=== PATIENT | male | born 1965 | race Caucasian/White ===

== ENCOUNTER 2019-12-13 18:05 | Emergency (ER) | payer BC, SELFPAY ==
--- NOTE | ~2019-12-13 | XR_ITS ---
EXAMINATION: XR chest ET placement INDICATION: Endotracheal tube insertion TECHNIQUE: Portable AP chest at 1902 hours COMPARISON: 1833 hours FINDINGS: An endotracheal tube has been inserted which ends 4.2 cm above the dominick. The nasogastric tube is in the stomach. The lungs are free of acute opacities. The cardiomediastinal silhouette is no rmal. There is no pleural effusion or pneumothorax. IMPRESSION: 1. Endotracheal tube inserted in adequate position. Reviewed, dictated and finalized at location A.
--- NOTE | ~2019-12-13 | CT_ITS ---
EXAMINATION: CT brain wo con INDICATION: Strokelike symptoms COMPARISON: None TECHNIQUE: Standard unenhanced head CT. The dose-length product (DLP) was 681.00 mGy-cm. The mA was a djusted according to patient size. Iterative reconstruction technique was employed. FINDINGS: There is a 2.2 x 2.0 cm hemorrhage in the right basal ganglia with intraventricular extensi on into the right lateral ventricle and the third ventricle. There is mass effect with effacement of the body of the right lateral ventricle. No definite underlying mass or infarction is identified. The garcia-white matter differentiation is normal. The basal cisterns are patent. The orbits are normal. T he paranasal sinuses, mastoids and calvarium are normal. IMPRESSION: 1. Acute hemorrhage of the right basal ganglia with extension into the right lateral ventricle and th ird ventricle. Neurosurgical consultation is recommended.These findings and recommendations were disc ussed with Dr. Guillen in the Emergency Department at 1825 hours on 12/13/2019. Reviewed, dictated and finalized at location A. IMPRESSION: 1. Acute hemorrhage of the right basal ganglia with extension into the right la teral ventricle and third ventricle. Neurosurgical consultation is recommended. These findings and recommendations were discussed with Dr. Guillen in the Emerg ency Department at 1825 hours on 12/13/2019.
--- NOTE | ~2019-12-13 | XR_ITS ---
EXAMINATION: XR abdomen NG/feed tube insert INDICATION: Nasogastric tube insertion TECHNIQUE: Portable AP KUB-NG at 1903 hours COMPARISON: None available FINDINGS: The nasogastric tube is in the stomach. There are no dilated loops of bowel. The visualized lung bases are clear. IMPRESSION: 1. Nasogastric tube in the stomach. Reviewed, dictated and finalized at location A.
--- NOTE | ~2019-12-13 | XR_ITS ---
EXAMINATION: XR chest 1V portable INDICATION: Weakness, intracranial hemorrhage TECHNIQUE: Portable AP chest at 1833 hours COMPARISON: None available FINDINGS: The lungs are free of acute opacities. There is no pleural effusion or pneumothorax. The ca rdiomediastinal silhouette is normal. The visualized bones and soft tissues are unremarkable. IMPRESSION: 1. No acute cardiopulmonary abnormality. Reviewed, dictated and finalized at location A.
--- NOTE | 2019-12-13 18:07 | ECG_ITS ---
Measurements Intervals [place] Rate: 110 P: 52 ND: 185 QRS: -35 QRSD: 105 T: 31 QT: 401 QTc: 544 Interpretive Statements SINUS OR ECTOPIC ATRIAL TACHYCARDIA LEFT AXIS DEVIATION DELAYED PRECORDIAL R/S TRANSITION BASELINE ARTIFACT- I, II, III, AVR, AVL, AVF ABNORMAL ECG Electronically Signed On 12-14-2019 8:36:08 CDT by Thad Adler D.O.
--- NOTE | 2019-12-13 18:13 | ED.NEUROSD ---
HPI - Neuro Symptoms/Deficit General Chief Complaint: Suspected CVA Stated Complaint: stoke like symptoms Time Seen by Provider: 12/13/19 18:13 Source: patient Mode of arrival: ambulatory Limitations: no limitations History of Present Illness HPI Narrative: A 54 y/o male presents to the ED with c/o LUE and LLE weakness that began 20 minutes prior to his arrival. 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 Pt started to experience difficulty walking so his brought him to the ED for evaluation. Pt states that he is in otherwise good health besides his PMHx of uncontrolled HTN. Pt does not see his PCP on a regular basis. He denies a fall or HI, smoking, and drug use. Pt is on ASA. Onset (ago): minute(s) (20) Timing confirmed by: spouse Location: left arm and left leg On Anticoagulants: Yes (ASA) Related Data Home Medications Medication Instructions Recorded Confirmed aspirin 162 mg PO BID 12/13/19 Allergies Allergy/AdvReac Type Severity Reaction Status Date / Time codeine Allergy Rash Verified 12/13/19 18:23 Review of Systems Review of Systems: All systems reviewed & are unremarkable except as noted in HPI and below Constitutional: Comments: Denies: a fall Neurologic: Reports weakness (LLE, LUE) Comments: Denies: a HI [facility] Past Medical History Medical History (Updated 12/13/19 @ 19:40 by Efrain Guillen MD) HTN (hypertension) Social History Social History (Updated 12/13/19 @ 18:20 by Tania Mantilla) Smoking status: Never smoker Substance use: never Comments PCP: Dr. Davis Exam Const: General: healthy appearing, no acute distress, well developed and alert Orientation/consciousness: patient oriented x3 Limitations: no limitations HENMT: Head: normocephalic and atraumatic Ears: external ears normal General nose exam: Normal external nose present and No nasal discharge present Mouth: Yes oropharynx normal and Yes moist mucous membranes Resp: Effort & Inspection: normal respiratory effort and able to speak in complete sentences Auscultation: clear to auscultation bilaterally Cardio: Rate: tachycardic Rhythm: regular rhythm Peripheral pulses: radial pulses present and popliteal pulses present GI: Inspection: non-distended GI Palp: Yes Soft to palpation, No Tenderness to palpation present (GI) and No Guarding due to palpation present (GI) Skin: General skin exam: normal color and no rashes or lesions noted Rashes: no rashes Trauma: no lacerations or abrasions Neuro: General: patient oriented x3 Cranial nerves: Yes CN's II-XII intact bilaterally Speech: normal speech Motor exam (neuro): Other motor observations present (Flacid LUE with ability to move fingers, LLE can be raised off the bed.) Coordination: other (Cannot preform finger to nose LUE, cannot preform heel to dos santos LLE) Extrem: General: normal to inspection and no clubbing, cyanosis or edema Course Reevaluation(s) Reevaluation #1: Accepted for transfer to [facility] bu Dr. Tidwell in the ER and stroke team. Pt stable and oriented x 3. Cardene gtt with goal pressure of 160-180 mmHg per stroke team. Date: 12/13/19 Time: 18:32 Reevaluation #2: Patient vomiting and developing facial droop and slurred speech. Will intubated for airway protection. Will send patient by helicopter. Date: 12/13/19 Time: 18:45 Reevaluation #3: Patient intubated. Not tolerating propofol for sedation despite increasing gtt and giving boluses. AirEvac at bedside. Will give ketamine for sedation. Will attempt to transfused KCL IV enroute. Date: 12/13/19 Time: 19:35 Vital Signs Vital signs: Vital Signs Pulse Rate 117 H 12/13/19 18:16 Respiratory Rate 16 12/13/19 18:16 Blood Pressure 247/147 H 12/13/19 18:16 Pulse Oximetry 99 12/13/19 18:16 Pulse Rate 101 H 12/13/19 19:16 Respiratory Rate 15 12/13/19 19:16 Blood Pressure 171/117 H 12/13/19 19:16 Pulse Oximetry 99 12/13/19 19:16 Procedures
[2019-12-13 18:16] VITALS: BP 247/147; PULSE 117; RESP 16; O2SAT 99
[2019-12-13 18:21] LABS: Glucose Point of Care 332 (65-105)
[2019-12-13 18:25] LABS: Basophils Absolute Auto 0.1 K/mm3 (0.0-0.1); Basophils Percent Auto 0.7 % (0.2-1.2); Eosinophils Absolute Auto 0.4 K/mm3 (0-0.3); Eosinophils Percent Auto 2.6 % (0-4.4); Hematocrit 48.4 % (42.0-52.0); Hemoglobin 17.4 g/dL (14.0-18.0); Immature Granulocyte Absolute 0.08 K/mm3 (0.00-0.031); Immature Granulocyte Percent A 0.5 % (0-0.5); Lymphocytes Absolute Auto 4.97 K/mm3 (0.9-3.2); Lymphocytes Percent Auto 32.9 % (18.3-44.2); Mean Corpuscular Hemoglobin 29.9 pg (26-34); Mean Corpuscular Volume 83.2 fl (80-100); Mean Platelet Volume 9.7 fl (7.4-10.4); Monocytes Absolute Auto 0.9 K/mm3 (0.1-0.6); Neutrophils Absolute Auto 8.7 K/mm3 (1.3-6.7); Neutrophils Percent Auto 57.3 % (45.5-73.1); Platelet Count Result 347 k/mm3 (150-375); Red Blood Count 5.82 M/mm3 (4.6-6.20); Red Cell Distribution Width 13.1 % (11.5-14.5); White Blood Count 15.1 K/mm3 (4.5-10.0)
[2019-12-13] MEDS: ONDANSETRON INJ 4 MG/2 ML VIAL (18:33)
[2019-12-13 18:35] LABS: INR 0.9; Prothrombin Time 11.7 Seconds (11.1-14.7)
[2019-12-13] MEDS: niCARdipine 20 MG/200 ML 20 MG/200 ML BAG 50 MG IV CONT (18:35)
[2019-12-13 18:36] LABS: Partial Thromboplastin Time 34.1 SECONDS (22.3-36.8)
[2019-12-13 18:44] LABS: Blood Urea Nitrogen 12 mg/dL (9-20); Calcium 9.3 mg/dL (8.4-10.2); Carbon Dioxide 36 mmol/L (22-30); Chloride 91 mmol/L (98-107); Estimated CRCL calculation 52 ml/min; Estimated Glomerular Filt Rate 53; Glucose 341 mg/dL (75-110); Sodium 134 mmol/L (137-145)
--- NOTE | 2019-12-13 18:51 | PC.NURSE ---
DECISION MADE BY DR MOLINA TO INTUBATE THE PT PT VOMITING, LEFT SIDED FACIAL DROOP IS PREVALANT. MEDS USED FOR INTUBATION ATOMIDATE 30, SUCCHS 100 GIVEN IVP 1852 RESP IN ROOM FOR PROCEDURE PT INTUBATED BY DR MOLINA TIME 1853 BILATERAL BS NOTED 23 @ THE TEETH PROPOFAL STARTED AT 5MCG/KG=2.4 MLS/HR
--- NOTE | 2019-12-13 19:05 | PC.NURSE ---
VRBO TO GIVE PROPOFAL [address] MOLINA. INCREASED PROPOFAL TO 10 MCG RATE NICARDIPINE IS AT 10 MG RATE OF 100ML/HR ET TUBE 7.5, 23 AT THE LIP JOE PLACED PRIOR TO DEPARTURE NG PLACED PRIOR TO DEPT VRBO TO INCREASE PROPOFAL TO 20MCG VRBO TO GIVE ANOTHER X1 DOSE OF PROPAFOL 40IVP THIRD IV NOW PLACED IN RIGHT HAND 18G
[2019-12-13 19:12] VITALS: BP 179/106; PULSE 91; RESP 16
--- NOTE | 2019-12-13 19:13 | PC.NURSE ---
PROPOFAL STOPPING NOW PER DR MOLINA AIR EVAC TO START GIVING KETAMINE IVP BOLUS
[2019-12-13 19:16] VITALS: BP 171/117; PULSE 101; RESP 15; O2SAT 99
== END 2019-12-13 19:16 | disposition short-term general hospital (02) ==
PROVIDERS: General Practice; Emergency Provider Emergency Medicine; PCP Internal Medicine
DX: I61.8 Other nontraumatic intracerebral hemorrhage (principal); R47.81 Slurred speech; R29.810 Facial weakness; R40.2430 Glasgow coma scale score 3-8, unspecified time; E87.6 Hypokalemia; I10 Essential (primary) hypertension
CPT/HCPCS: 31500; 36415; 70450; 71045; 80048; 82948; 84484; 85025; 85610; 85730; 93005; 96374; 96375; 99291; J0330; J2405; J2704; J7030

== ENCOUNTER 2020-03-05 11:16 | Outpatient (CLI) | payer BC, SELFPAY ==
[2020-03-05 12:25] LABS: Alanine Aminotransferase 7 U/L (4-50); Aspartate Amino Transferase 17 U/L (17-59)
== END 2020-03-05 11:17 | disposition home or self-care (01) ==
PROVIDERS: PCP Internal Medicine; Visit Provider Podiatrist Foot & Ankle Surgery
DX: B35.1 Tinea unguium (principal)
CPT/HCPCS: 36415; 84450; 84460

== ENCOUNTER 2020-03-26 12:41 | Observation (INO) | payer BC, MEDICAID, SELFPAY ==
[2020-03-26] VITALS (13 sets, daily range): BP systolic 92–127; BP diastolic 62–85; PULSE 55–67; RESP 11–21; TEMP 36.4–36.6; O2SAT 94–99; BMI 21.1
--- NOTE | 2020-03-26 13:05 | PC.NURSE ---
1300-SPOKE WITH [facility] AT [place] [facility]. STATED MED PEAKS AT ~1 1/2-2 HOURS ,DOES NOT ANTICIPATE ANOTHER DROP IN BP. SYMPTOMATIC TREATMENT .WILL FAX INFO SHEETS.
[2020-03-26 13:25] LABS: Basophils Absolute Auto 0.1 K/mm3 (0.0-0.1); Eosinophils Absolute Auto 0.4 K/mm3 (0-0.3); Eosinophils Percent Auto 3.9 % (0-4.4); Hematocrit 38.3 % (42.0-52.0); Hemoglobin 12.6 g/dL (14.0-18.0); Immature Granulocyte Absolute 0.05 K/mm3 (0.00-0.031); Immature Granulocyte Percent A 0.5 % (0-0.5); Lymphocytes Absolute Auto 2.08 K/mm3 (0.9-3.2); Lymphocytes Percent Auto 19.2 % (18.3-44.2); Mean Corpuscular HGB Conc 32.9 g/dl (32-36); Mean Corpuscular Hemoglobin 28.3 pg (26-34); Mean Corpuscular Volume 86.1 fl (80-100); Mean Platelet Volume 9.5 fl (7.4-10.4); Monocytes Absolute Auto 0.8 K/mm3 (0.1-0.6); Monocytes Percent Auto 7.3 % (2.6-8.5); Neutrophils Absolute Auto 7.4 K/mm3 (1.3-6.7); Neutrophils Percent Auto 68.1 % (45.5-73.1); Platelet Count Result 365 k/mm3 (150-375); Red Blood Count 4.45 M/mm3 (4.6-6.20); Red Cell Distribution Width 13.2 % (11.5-14.5); White Blood Count 10.9 K/mm3 (4.5-10.0)
[2020-03-26 13:37] LABS: INR 1.1
[2020-03-26 13:38] LABS: Partial Thromboplastin Time 36.8 SECONDS (22.3-36.8)
[2020-03-26 13:39] LABS: Alanine Aminotransferase 8 U/L (4-50); Albumin Level 3.8 g/dL (3.5-5.1); Alkaline Phosphatase 86 U/L (38-126); Aspartate Amino Transferase 17 U/L (17-59); Bilirubin,Total 0.3 mg/dL (0.2-1.3); Blood Urea Nitrogen 13 mg/dL (9-20); Calcium 9.1 mg/dL (8.4-10.2); Carbon Dioxide 29 mmol/L (22-30); Chloride 102 mmol/L (98-107); Estimated CRCL calculation 41 ml/min; Estimated Glomerular Filt Rate 42; Glucose 94 mg/dL (75-110); Magnesium 2.1 mg/dL (1.6-2.3); Potassium 2.3 mmol/L (3.4-5.0); Sodium 139 mmol/L (137-145)
[2020-03-26 13:47] LABS: Acetaminophen < 10 ug/mL (10-30); Ethanol < 10 mg/dL (<10); Salicylate < 1.0 mg/dL (2-20)
[2020-03-26] MEDS: POTASSIUM CHLORIDE 20 MEQ TABLET 40 MEQ PO (14:22)
--- NOTE | 2020-03-26 14:38 | ED.GENADULT ---
HPI - General Adult General Chief complaint: Unspecified Stated complaint: TOOK DOUBLE DOSE OF BP MEDS Time Seen by Provider: 03/26/20 12:46 History of Present Illness HPI narrative: Patient is a 55-year-old male who presents the ER with accidental drug ingestion. He is supposed take Coreg 25 mg and he accidentally ingested 50 mg after his gave him a double dose of his meds. This occurred at 1030. No chest pain/shortness of breath/nausea/vomiting/dizziness. Patient has chronic left-sided deficits from a hemorrhagic stroke he suffered 3 months ago. Related Data Home Medications Medication Instructions Recorded Confirmed menthol 0.44 %-zinc oxide 20.6 % 1 applic TOPICAL BID PRN gm 02/27/20 02/27/20 topical ointment Allergies Allergy/AdvReac Type Severity Reaction Status Date / Time codeine Allergy Rash Verified 03/08/20 09:19 Review of Systems Review of Systems: All systems reviewed & are unremarkable except as noted in HPI and below Constitutional: Constitutional: Denies chills, Denies fever(s) and Denies weakness Cardiovascular: Cardiovascular: Denies chest pain, Denies rapid heart rate and Denies slow heart rate Neurologic: Denies confusion, Denies dizziness and Denies syncope PMFSH Past Medical History Medical History (Updated 03/26/20 @ 14:41 by Efrain Guillen MD) Bowel incontinence Family history of colon cancer in mother Hemiparesis affecting left side as late effect of cerebrovascular accident Hernia HTN (hypertension) Intracranial hemorrhage Stroke Type 2 diabetes mellitus without complications Surgical History Surgical History (Updated 02/27/20 @ 14:06 by Shu Cortes) H/O kidney donation Family History Family History (Updated 02/27/20 @ 14:12 by Shu Cortes) Father Alcoholism Mother Carcinoma of colon Social History Social History (Updated 02/27/20 @ 14:06 by Shu Cortes) Smoking status: Never smoker Alcohol intake: never Substance use: never Exam Narrative: Exam Narrative: GENERAL: Well-appearing, well-nourished, and in no acute distress. HEAD: Normocephalic, atraumatic. EYES: PERRL and EOMI. ENT: Mucous membranes moist. CHEST: Clear to auscultation. No respiratory distress. HEART: Regular rate and rhythm. Normal peripheral pulses. ABDOMEN: Soft, nontender, nondistended. EXTREMITIES: Left-sided weakness with contractures of left upper extremity and rigidity in left lower extremity. Normal strength and range of motion on the right side. SKIN: Warm, dry, no rash. NEURO: Alert and oriented x3. Course Course Emergency Course: This was not a toxic ingestion, poison control contacted and states patient is beyond the peak of the medication. Patient will be admitted for observation given critically low potassium. He will get oral and IV replacement. Vital Signs Vital signs: Vital Signs Pulse Rate 56 L 03/26/20 13:09 Respiratory Rate 16 03/26/20 13:09 Blood Pressure 119/85 03/26/20 13:09 Pulse Oximetry 99 03/26/20 13:09 Pulse Rate 56 L 03/26/20 13:13 Respiratory Rate 16 03/26/20 13:09 Blood Pressure 119/85 03/26/20 13:09 Pulse Oximetry 99 03/26/20 13:09 Medical Decision Making Vital Signs Vital Signs: Vital Signs Pulse Rate 56 L 03/26/20 13:09 Respiratory Rate 16 03/26/20 13:09 Blood Pressure 119/85 03/26/20 13:09 Pulse Oximetry 99 03/26/20 13:09 Pulse Rate 56 L 03/26/20 13:13 Respiratory Rate 16 03/26/20 13:09 Blood Pressure 119/85 03/26/20 13:09 Pulse Oximetry 99 03/26/20 13:09 Lab Data Result diagrams: 03/26/20 13:19 03/26/20 13:19 Labs: Lab Results 03/26/20 03/26/20 03/26/20 Range/Units 13:19 13:19 13:19 WBC 10.9 H (4.5-10.0) K/mm3 RBC 4.45 L (4.6-6.20) M/mm3 Hgb 12.6 L D (14.0-18.0) g/dL Hct 38.3 L (42.0-52.0) % MCV 86.1 (80-100) fl MCH 28.3 (26-34) pg MCHC 32.9 (32-36) g/dl RDW 13.2
[2020-03-26 14:57] LABS: Add Urine Microscopic? YES; Appearance Urine Clear (Clear); Bacteria Urine Trace /hpf; Bilirubin Urine Negative (Negative); Color Urine Yellow (Yellow); Glucose Urine UA Negative (Negative); Ketones Urine Negative (Negative); Leukocyte Esterase Ur 3+ LEU/UL (Negative); Mucus Urine Rare /lpf; Nitrate Urine Negative (Negative); Protein Urine 2+ mg/dL (Negative); Specific Grav Ur 1.012 (1.001-1.035); Squamous Epithelial Cell Urine Rare /hpf (Few); Urobilinogen Urine Negative mg/dL (<2.0); WBC Urine 51-75 /hpf
[2020-03-26 14:58] LABS: Blood Urine Negative (Negative)
--- NOTE | 2020-03-26 15:03 | PC.NURSE ---
PC called for patient update in patient care.
[2020-03-26 15:18] LABS: Amphetamine Screen Urine Negative (Negative); Barbiturate Screen Urine Negative (Negative); Benzodiazepines Screen Urine Negative (Negative); Cannabinoid Screen Urine Negative (Negative); Cocaine Screen Urine Negative (Negative); Methadone Screen Urine Negative (Negative); Opiate Screen Urine Negative (Negative); Phencyclidine Screen Urine Negative (Negative)
--- NOTE | 2020-03-26 16:30 | PM.IMHP ---
H&P: HPI History of Present Illness Chief complaint: Accidental overdose of beta andre. Narrative: Ted iRchardson is a 55-year-old male with history of intracranial hemorrhage in November 2019, hypertension, chronic kidney disease, benign prostatic hyperplasia, and type 2 diabetes mellitus who presented to the emergency department earlier today via EMS from home for evaluation of an accidental overdose of his beta-andre. He is due for carvedilol 25 milligrams today, but his accidentally a 50 milligrams. [place] [facility] was contacted and they a report peak affecting the drug in 1.5 to 2 hours and close monitoring. His blood pressure has been relatively stable in the low 100s systolic. Additionally, his potassium was noted to be quite low, and he has never had problems with that before. He is not on a diuretic and he has not required any excess insulin recently. At the time my evaluation he has no complaints and reports feeling well. He denies headache, lightheadedness/dizziness, blurry vision, palpitations, shortness of breath, nausea, vomiting, and diarrhea. Review of Systems Review of Systems: Narrative: Twelve systems were reviewed with pertinent positives and negatives as per HPI. No fever, chills, or sweats. No recent cold or flu symptoms. He denies cough and shortness of breath. Appetite has been good. He has a chronic indwelling Storm catheter since his hemorrhagic stroke in November 2019. He has not had lower abdominal pain or back pain. He has dense hemiplegia from the stroke. He recently passed a swallow study and had his G-tube pulled. He has not had dysphagia or concerns for aspiration. He has indwelling Storm due to urinary retention. He has minimal control of his bowels since his stroke. He has poor core strength and balance, and when he sits up he tends to lean to the left. Except as documented, all other systems were reviewed and are negative. [facility] Past Medical History Medical History (Updated 03/26/20 @ 20:57 by Malou Barnard PA-C) Benign prostatic hyperplasia Chronic kidney disease Gastroesophageal reflux disease Hyperlipidemia Hypertension 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 Urinary retention With indwelling Storm catheter. Surgical History Surgical History (Updated 03/26/20 @ 20:50 by Malou Barnard PA-C) History of kidney donation History of tracheostomy Family History Family History Father Alcoholism Mother Carcinoma of colon Social History Social History (Updated 03/26/20 @ 20:51 by Malou Barnard PA-C) Social History: Surrogate decision maker: Coreen Richardson, . Code status: Full code. Smoking status: Never smoker Alcohol intake: never Substance use: never Additional living arrangements comments: Patient lives with his in [place]. 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 Gender identity (if verbalized by the patient): Male Spiritual care concerns: No Meds Home Medications and Allergies Home Medications Medication Instructions Recorded Confirmed Type amlodipine 10 mg tablet 10 mg PO DAILY #30 tablet 02/28/20 03/26/20 Rx finasteride 5 mg tablet 5 mg PO DAILY #30 tablet 02/28/20 03/26/20 Rx gabapentin 100 mg capsule 100 mg PO BID #60 cap 02/28/20 03/26/20 Rx carvedilol 12.5 mg tablet 25 mg PO Q12H #120 tablet 03/04/20 03/26/20 Rx atorvastatin 20 mg PO HS 03/26/20 03/26/20 History docusate sodium 50 mg PO DAILY 03/26/20 03/26/20 History famotidine 20 mg PO BID 03/26/20 03/26/20 History fluoxetine 20 mg PO HS 03/26/20 03/26/20 History hydralazine 100 mg PO Q8H 03/26/20 03/26/20 History insulin glargine [Lantus U-100 15 unit SUB-Q HS MDD 15 03/26/20 03/26/20 History Insulin] insulin lispro See Rx Instructions .ROUTE .COMPLEX 03/26/20 0
--- NOTE | 2020-03-26 16:37 | ADMGEN ---
This patient, Ted Richardson, was admitted to Medical Room 240-01. Patient/family oriented to hospital policies and general routines including ID bracelet, bed and alarms, visiting hours, pain management, procedures, bathroom and other care routines, personal items, smoking policy, room service/diet, and visiting hours. Valuables list has been completed. Information on how to activate the Rapid Response Team has been discussed. Patient/Family are encouraged to report perceived risks to care and to ask questions if they do not understand what they are told or what they should do.
[2020-03-26] MEDS: ACETAMINOPHEN 325 MG TABLET 650 MG PO (17:21)
[2020-03-26 17:40] LABS: Glucose Point of Care 100 (65-105)
[2020-03-26 21:07] LABS: Potassium 2.8 mmol/L (3.4-5.0)
[2020-03-26] MEDS: GABAPENTIN 100 MG CAPSULE PO (22:07)
[2020-03-26] MEDS: FLUoxetine HCL 20 MG CAPSULE PO (22:07)
[2020-03-26] MEDS: POTASSIUM CHLORIDE 20 MEQ PACKET (FOR LIQUID) 40 MEQ PO (22:07)
[2020-03-26] MEDS: SEVELAMER CARBONATE 800 MG TABLET PO (22:07)
[2020-03-26] MEDS: TAMSULOSIN HCL 0.4 MG CAPSULE PO (22:08)
[2020-03-26] MEDS: ATORVASTATIN 20 MG TABLET PO (22:08)
[2020-03-26] MEDS: FAMOTIDINE 20 MG TABLET PO (22:08)
[2020-03-26] MEDS: INSULIN GLARGINE (*BKC) 100 UNITS/ML 15 UNITS SUB-Q (22:11)
[2020-03-26 23:08] LABS: Glucose Point of Care 169 (65-105)
[2020-03-27] VITALS: PULSE 68
[2020-03-27 04:00] VITALS: PULSE 60
[2020-03-27 05:34] LABS: Hematocrit 34.1 % (42.0-52.0); Hemoglobin 11.4 g/dL (14.0-18.0); Mean Corpuscular HGB Conc 33.4 g/dl (32-36); Mean Corpuscular Hemoglobin 28.6 pg (26-34); Mean Corpuscular Volume 85.5 fl (80-100); Mean Platelet Volume 9.2 fl (7.4-10.4); Platelet Count Result 333 k/mm3 (150-375); Red Blood Count 3.99 M/mm3 (4.6-6.20); Red Cell Distribution Width 13.1 % (11.5-14.5); White Blood Count 8.1 K/mm3 (4.5-10.0)
[2020-03-27 05:51] LABS: Blood Urea Nitrogen 13 mg/dL (9-20); Calcium 8.8 mg/dL (8.4-10.2); Carbon Dioxide 26 mmol/L (22-30); Chloride 108 mmol/L (98-107); Estimated CRCL calculation 44 ml/min; Estimated Glomerular Filt Rate 48; Glucose 76 mg/dL (75-110); Potassium 2.6 mmol/L (3.4-5.0); Sodium 140 mmol/L (137-145)
[2020-03-27 05:57] VITALS: BP 123/74; PULSE 62; RESP 18; TEMP 36.4; O2SAT 99
[2020-03-27 07:56] LABS: Glucose Point of Care 103 (65-105)
[2020-03-27 08:00] VITALS: PULSE 71
[2020-03-27] MEDS: DOCUSATE SODIUM LIQ 100 MG/10 ML UDC 50 MG PO (08:30)
[2020-03-27] MEDS: SEVELAMER CARBONATE 800 MG TABLET PO ×2 (08:30→11:26)
[2020-03-27] MEDS: GABAPENTIN 100 MG CAPSULE PO (08:31)
[2020-03-27] MEDS: FINASTERIDE 5 MG TABLET PO (08:31)
[2020-03-27] MEDS: FAMOTIDINE 20 MG TABLET PO (08:31)
[2020-03-27 10:06] VITALS: BP 131/80; PULSE 61; RESP 14; TEMP 36.5; O2SAT 97
[2020-03-27 10:55] VITALS: BMI 22.6
[2020-03-27 11:44] LABS: Glucose Point of Care 102 (65-105)
[2020-03-27 12:00] VITALS: PULSE 60
--- NOTE | 2020-03-27 12:45 | PM.DS ---
DS: Admitting Diagnosis Admitting Diagnosis Admitting Diagnosis: Poisoning by unspecified drugs, medicaments and biological substances, accidental (unintentional), initial encounter DS: Discharge Diagnosis Discharge Diagnosis (1) Accidental overdose: Code(s): T50.901A - Poisoning by unspecified drugs, medicaments and biological substances, accidental (unintentional), initial encounter Status: Acute Assessment and Plan: Patient was given Coreg 50 milligrams this morning instead of his usual dose of 25 milligrams. Per Poison Control, peak effect at 1.5 to 2 hours. Pt feels better after iv fluid hydration (2) Hypokalemia: Code(s): E87.6 - Hypokalemia Status: Acute Assessment and Plan: Unclear why his potassium is so low. ? refeeding syndrome Pt just had peg tube removed Pt added dietary supplements and additional potassium supplements (3) Chronic kidney disease: Code(s): N18.9 - Chronic kidney disease, unspecified Status: Acute Assessment and Plan: reports chronic kidney disease stage 3. Continue sevelamer. Pt to follow with PCP (4) Hypertension: Code(s): I10 - Essential (primary) hypertension Status: Acute Assessment and Plan: Restart antihypertensives History of old stroke and intracranial hemorrhage in November 2019 (5) Benign prostatic hyperplasia: Code(s): N40.0 - Benign prostatic hyperplasia without lower urinary tract symptoms Status: Acute Assessment and Plan: Indwelling Storm catheter due to urinary retention. Continue tamsulosin and finasteride. DS: Summary Time Spent with Patient Time attestation: Total time spent providing and/or coordinating discharge services:40 minutes on day of dischrage Exam Narrative: Exam Narrative: General: Chronically ill and frail Neck: Supple. Healed tracheostomy site. Respiratory: Lungs are clear to auscultation bilaterally. Cardiovascular: Regular rate and rhythm with S1-S2. Gastrointestinal: Abdomen is soft, nontender, and nondistended with positive bowel sounds. Genitourinary: Storm catheter in place. Skin: Warm and dry. No rash or lesions on limited exam. Extremities: No cyanosis, clubbing, or edema. Radial and pedal pulses intact. Neurological: Left-sided hemiplegia. Psychiatric: Pleasant and cooperative with normal mood and flat affect. DS: Data Data Completed and Pending Labs on day of discharge: Labs from last 24 hours 03/27/20 03/27/20 03/27/20 11:44 11:21 07:52 WBC RBC Hgb Hct MCV MCH MCHC RDW Plt Count MPV Immature Gran % (Auto) Neut % (Auto) Lymph % (Auto) Pope % (Auto) Eos % (Auto) Baso % (Auto) Lymph # (Auto) Pope # (Auto) Eos # (Auto) Baso # (Auto) Abs Immat Gran (auto) Absolute Neuts (auto) Absolute Nucleated RBC Nucleated RBC % PT INR APTT Sodium Potassium 3.0 L Chloride Carbon Dioxide BUN Creatinine Estim Creat Clear Calc Estimated GFR Glucose POC Capillary Glucose 102 103 Calcium Magnesium Total Bilirubin AST ALT Alkaline Phosphatase Total Protein Albumin Urine Color Urine Appearance Urine pH Ur Specific [place] Urine Protein Urine Glucose (UA) Urine Ketones Ur Blood (Man) Urine Nitrate Urine Bilirubin Urine Urobilinogen Leukocyte Esterase Rfl Urine RBC Urine WBC Ur Squamous Epith Cells Urine Bacteria Urine Mucus Salicylates Urine Opiates Screen Urine Methadone Screen Acetaminophen Ur Barbiturates Screen Ur Phencycli
== END 2020-03-27 15:45 | disposition home health service (06) ==
LOC: ANHED 14:41 → ANH2MED 20:39
PROVIDERS: Physician Assistant; Admitting Provider Internal Medicine; Emergency Provider Emergency Medicine; PCP Internal Medicine; Visit Provider Family Medicine
DX: T44.7X1A Poisoning by beta-adrenoreceptor antagonists, accidental (unintentional), initial encounter (principal); E87.6 Hypokalemia; I12.9 Hypertensive chronic kidney disease with stage 1 through stage 4 chronic kidney disease, or unspecified chronic kidney disease; N18.9 Chronic kidney disease, unspecified; E11.22 Type 2 diabetes mellitus with diabetic chronic kidney disease; N40.0 Benign prostatic hyperplasia without lower urinary tract symptoms; I69.354 Hemiplegia and hemiparesis following cerebral infarction affecting left non-dominant side; Z90.5 Acquired absence of kidney; Z79.4 Long term (current) use of insulin; Z79.899 Other long term (current) drug therapy
CPT/HCPCS: 36415; 80048; 80053; 80307; 81001; 83735; 84132; 85025; 85027; 85610; 85730; 87077; 87086; 87088; 87186; 96365; 96366; 99285; A9270; G0378; J1815; J3480

== ENCOUNTER 2020-04-02 08:00 | Outpatient (NON) | payer BC, MEDICAID, SELFPAY ==
[2020-04-02 19:11] LABS: Add Urine Microscopic? YES; Appearance Urine Turbid (Clear); Bacteria Urine 2+ /hpf; Bilirubin Urine Negative (Negative); Blood Urine 1+ (Negative); Color Urine Yellow (Yellow); Glucose Urine UA Negative (Negative); Ketones Urine Negative (Negative); Leukocyte Esterase Ur 3+ LEU/UL (Negative); Nitrate Urine Negative (Negative); Protein Urine 2+ mg/dL (Negative); RBC Urine 21-50 /hpf (0-2); Specific Grav Ur 1.012 (1.001-1.035); Urobilinogen Urine Negative mg/dL (<2.0); WBC Urine >75 /hpf
== END 2020-04-02 08:01 ==
PROVIDERS: PCP Internal Medicine; Visit Provider Clinical Nurse Specialist
DX: R30.0 Dysuria (principal)
CPT/HCPCS: 81001; 87077; 87086; 87088; 87186

== ENCOUNTER 2020-05-15 13:35 | Outpatient (CLI) | payer MEDICAID, SELFPAY ==
--- NOTE | ~2020-05-15 | CT_ITS ---
EXAMINATION: CT brain wo con EXAM DATE: 05/15/2020 14:10 INDICATION: Cerebral infarction. TECHNIQUE: Spiral CT of the head was performed without contrast. Axial, coronal and sagittal images were reviewed. The dose-length product (DLP) for this examination was 681.00 mGy-cm. The exposure w as tailored according to patient size, and iterative reconstruction (ASIR) was used as additional dos e reduction technique. Comparison is made to prior examination from 12/13/2019. FINDINGS: Small old right periventricular infarction (residual encephalomalacia from the previously s een hemorrhage in this location). There is no acute intraparenchymal hemorrhage. No evidence of intr aparenchymal brain mass lesion. No evidence of acute infarction. Please note that initial head CT h as limited sensitivity for small or acute infarctions. There is mild periventricular and subcortical hypodensity, nonspecific but probably related to small vessel ischemic disease. There is mild promi nence of the sulci and ventricles related to cerebral atrophy. There is intracranial carotid arteri osclerosis. There are no extra-axial collections. There is no mass effect or midline shift. The or bits are unremarkable. Soft tissue is unremarkable. The visualized sinuses and mastoid air cells ar e well aerated. IMPRESSION: 1. Small old right periventricular infarction. 2. Chronic age related findings. Reviewed, dictated and finalized at location B.
== END 2020-05-15 13:36 | disposition home or self-care (01) ==
PROVIDERS: PCP Internal Medicine; Visit Provider Internal Medicine
DX: I63.9 Cerebral infarction, unspecified (principal)
CPT/HCPCS: 70450

== ENCOUNTER 2020-06-12 14:01 | Outpatient (CLI) | payer MEDICAID, SELFPAY ==
[2020-06-12 14:48] LABS: Hematocrit 40.3 % (42.0-52.0); Hemoglobin 13.4 g/dL (14.0-18.0); Mean Corpuscular HGB Conc 33.3 g/dl (32-36); Mean Corpuscular Hemoglobin 28.2 pg (26-34); Mean Corpuscular Volume 84.7 fl (80-100); Mean Platelet Volume 9.8 fl (7.4-10.4); Platelet Count Result 369 k/mm3 (150-375); Red Blood Count 4.76 M/mm3 (4.6-6.20); Red Cell Distribution Width 14.1 % (11.5-14.5); White Blood Count 10.3 K/mm3 (4.5-10.0)
[2020-06-12 15:00] LABS: Albumin Level 4.3 g/dL (3.5-5.1); Anion Gap 6 mmol/L (8-16); Blood Urea Nitrogen 13 mg/dL (9-20); Calcium 9.4 mg/dL (8.4-10.2); Carbon Dioxide 32 mmol/L (22-30); Chloride 103 mmol/L (98-107); Estimated Glomerular Filt Rate > 60; Glucose 107 mg/dL (75-110); Phosphorus 3.9 mg/dL (2.5-4.5); Potassium 2.9 mmol/L (3.4-5.0); Sodium 141 mmol/L (137-145)
[2020-06-12 15:09] LABS: Parathyroid Intact 35.9 pg/mL (7.5-53.5)
[2020-06-12 15:26] LABS: Erythrocyte Sedimentation Rate 9 mm/hr (0-20)
[2020-06-12 15:47] LABS: Vitamin D 25 Hydroxy 23.9 ng/mL
[2020-06-12 16:57] LABS: Complement C3 114 mg/dL (88-165)
[2020-06-15 10:38] LABS: Complement Total CH50 >60 U/mL (31-60)
[2020-06-15 19:14] LABS: Kappa\\Lambda Light Chains 1.59 (0.26-1.65)
== END 2020-06-12 14:02 | disposition home or self-care (01) ==
PROVIDERS: PCP Internal Medicine; Visit Provider Internal Medicine Nephrology
DX: N18.3 Chronic kidney disease, stage 3 (moderate) (principal)
CPT/HCPCS: 36415; 80069; 82306; 83883; 83970; 85027; 85652; 86038; 86039; 86160; 86162; 86334

== ENCOUNTER 2020-06-13 17:32 | Outpatient (CLI) | payer MEDICAID, SELFPAY ==
[2020-06-13 18:07] LABS: Add Urine Microscopic? YES; Appearance Urine Clear (Clear); Bilirubin Urine Negative (Negative); Blood Urine Negative (Negative); Color Urine Straw (Yellow); Glucose Urine UA Negative (Negative); Ketones Urine Negative (Negative); Leukocyte Esterase Ur 2+ LEU/UL (Negative); Mucus Urine Rare /lpf; Nitrate Urine Negative (Negative); Protein Urine 1+ mg/dL (Negative); Specific Grav Ur 1.008 (1.001-1.035); Urobilinogen Urine Negative mg/dL (<2.0)
[2020-06-13 18:46] LABS: Creatinine Urine 29.1 mg/dL; Total Protein Urine Random 56 mg/dL
== END 2020-06-13 17:33 | disposition home or self-care (01) ==
LOC: ANHLAB 17:34
PROVIDERS: PCP Internal Medicine; Visit Provider Internal Medicine Nephrology
DX: N18.3 Chronic kidney disease, stage 3 (moderate) (principal)
CPT/HCPCS: 81001; 82570; 84156; 86335

== ENCOUNTER 2020-06-27 16:31 | Outpatient (CLI) | payer OTHER, SELFPAY ==
[2020-06-27 18:22] LABS: Total Volume 24 Hour Urine 2300 ml
[2020-06-27 18:29] LABS: Sodium 24 Hour Urine 179 mmol/day (40-220); Sodium Urine Random 78 meq/L
[2020-07-04 06:15] LABS: Metanephrine, Total Urine 567 mcg/24 h (224-832); Metanephrine, Urine 144 mcg/24 h (90-315); Normetanephrine, Urine 423 mcg/24 h (122-676)
== END 2020-06-27 16:32 | disposition home or self-care (01) ==
PROVIDERS: PCP Internal Medicine; Visit Provider Internal Medicine Nephrology
DX: E87.6 Hypokalemia (principal)
CPT/HCPCS: 81050; 82088; 82530; 83835; 84300; 97110; 97112

== ENCOUNTER 2020-08-07 12:30 | Outpatient (RCR) | payer MEDICAID, OTHER, SELFPAY ==
--- NOTE | 2020-06-14 17:21 | PTOPEVAL ---
INITIAL PHYSICAL THERAPY EVALUATION and PLAN OF CARE Thank you for referring Ted Richardson to [facility].? Ted is scheduled to be seen for physical therapy? 2x/week for 6 weeks. Please review, sign, date and return this plan of care ANDER. He would also benefit from Occupational Therapy Evaluation for L UE paresis. I agree with and certify that the following plan of care is medically necessary. Referring Physician Date Admitting Provider: Attending Provider: Pallavi Gómez NP Referring Provider: *CEDRIC Outpatient Evaluation Start: 06/14/20 14:48 Freq: Status: Active Protocol: Document 06/14/20 14:48 LINCOLN (Rec: 06/14/20 16:02 LINCOLN [id number]) Therapy Assessment Status Assessment Status Assessment Status Evaluation Outpatient Past Medical History Past Medical History Source of Past Medical History Recalled from Previous Visit, Confirmed with Patient/Family Neurological History Hx Cerebrovascular Accident (CVA) Yes: Hemmorrhagic stroke 2019 Cardiovascular History Hx Hypercholesterolemia Yes Hx Hypertension Yes Respiratory History Hx Chronic Obstructive Pulmonary Disease Yes (COPD) Gastrointestinal History Hx Gastroesophageal Reflux Disease Yes Genitourinary History Hx Other Genitourinary Disorders Yes: Retention issues - catherized Musculoskeletal History Hx Musculoskeletal Disorders No Significant History Hematological History Hx Hematological Disorders No Significant History HEENT History Hx HEENT Disorders No Significant History Integumentary History Hx Skin Disorders No Significant History Reproductive History Hx Reproductive Disorders No Significant History Psychosocial History Hx Depression Yes Pain History History of Any Previous or Ongoing No Significant History Instance of Pain Anesthesia History Hx Anesthesia Reactions No Significant History Evaluation Information Problem Diagnosis hemiplegia & hemparesis cerbral infarction affecting L non-dominant side Onset 12/13/2019 Subjective Information got up from eating, began Query Text:As Reported By Patient/ walking - L side became weaker Family , son carried him to car - [facility] - [address] [place] [address] including [facility] - went to rehab facility in [place] Did have home health until March 27 - then lost insurance. Got on [employer] - now pursuing rehab again. Transfers are done via
[2020-07-09 13:36] VITALS: BP_SYST 90
--- NOTE | 2020-07-09 14:39 | OTOPEVAL ---
OCCUPATIONAL THERAPY INITIAL EVALUATION: 07/09/2020 Thank you for referring Ted Richardson to [facility].? The patient is scheduled to be seen for therapy? 2 x/week for 4 weeks. Please review, sign, date and return this plan of care ANDER. I agree with and certify that the following plan of care is medically necessary. Referring Physician Date Attending Provider: Pallavi Gómez NP *OT Outpatient Evaluation Start: 07/09/20 13:36 Freq: Status: Active Protocol: Document 07/09/20 13:36 KJL (Rec: 07/09/20 14:39 KJL [id number]) Therapy Assessment Status Assessment Status Assessment Status Evaluation Outpatient Past Medical History Past Medical History Source of Past Medical History Recalled from Previous Visit, Confirmed with Patient/Family Neurological History Hx Cerebrovascular Accident (CVA) Yes: Hemmorrhagic stroke 2019 Cardiovascular History Hx Hypercholesterolemia Yes Hx Hypertension Yes Respiratory History Hx Chronic Obstructive Pulmonary Disease Yes (COPD) Gastrointestinal History Hx Gastroesophageal Reflux Disease Yes Genitourinary History Hx Other Genitourinary Disorders Yes: Retention issues - catherized Musculoskeletal History Hx Musculoskeletal Disorders No Significant History Hematological History Hx Hematological Disorders No Significant History HEENT History Hx HEENT Disorders No Significant History Integumentary History Hx Skin Disorders No Significant History Reproductive History Hx Reproductive Disorders No Significant History Psychosocial History Hx Depression Yes Pain History History of Any Previous or Ongoing No Significant History Instance of Pain Anesthesia History Hx Anesthesia Reactions No Significant History Evaluation Information Problem Diagnosis hemiplegia & hemparesis cerbral infarction affecting L non-dominant side Onset 12/13/2019 Subjective Information got up from eating, began Query Text:As Reported By Patient/ walking - L side became weaker Family , son carried him to car - ED [address] including [facility] - went to rehab facility in [place] Did have home health until March 27 - then lost insurance. Pt is able to feed himself, completes dressing his lower body, he helps with upper body , pt has catheter/dependent in
--- NOTE | 2020-07-18 14:25 | PCPTNOTE ---
Patient called & cancelled scheduled appointment this date due to increase pain.
--- NOTE | 2020-07-23 14:23 | PCOTNOTE ---
Patient called and cancelled OT and PT tx this date due to having no transportation.
--- NOTE | 2020-07-25 16:56 | PTOPEVAL ---
PHYSICAL THERAPY RE-EVALUATION and PLAN OF CARE Thank you for referring Ted Richardson to [facility].? Ted has made some gains towards goals set. He is scheduled to be seen for physical therapy? 2x/week for 4 weeks. Please review, sign, date and return this plan of care ANDER. I agree with and certify that the following plan of care is medically necessary. Referring Physician Date Admitting Provider: Attending Provider: Pallavi Gómez NP Referring Provider: *PT Outpatient Evaluation Start: 06/14/20 14:48 Freq: Status: Active Protocol: Document 07/25/20 14:07 LINCOLN (Rec: 07/25/20 15:23 LINCOLN [id number]) Therapy Assessment Status Assessment Status Assessment Status Re-evaluation Evaluation Information Problem Subjective Information states that she hasn't Query Text:As Reported By Patient/ tried a transfer with him - Family always uses the lift. Ted states that he gets out of bed 2x/day for about 1 hour at a time. In addition will sit up for dinner. Sitting is usually on the sofa with pillow support. Pain Assessment Timing of Pain Assessment Timing of Pain Assessment Assessment Pain Scale Pain Scale Used Numeric (1 - 10) Self Report Pain Assessment Left Leg(s) Reported Pain Level 5 Pain Description Throbbing Lowest Pain Intensity 3 Greatest Pain Intensity 8 Pain Score Pain Score 5: Self Report Interventions Used Interventions Used By Clinicians Exercise Lower Extremity Range of Motion General Lower Extremity Range of Motion Gross Lower Extremity Range of Motion L knee extension - 53 deg from Comments full flexion with passive stretching L ankle 5 deg dorsiflexion passive Lower Extremity Muscle Strength Testing General Lower Extremity Strength Gross Lower Extremity Strength L hip flexion 3/5, extension 2 /5, hip abduction/adduction 2/ 5 unable to isolate knee and ankle motion this date. Transfer Assessment Bed Transfer Assessment Bed Transfer Assistive Devices Gait Belt Bed Transfer Destination Chair Sit to Stand Bed Transfer Ability Moderate Assistance X 1 Stand to Sit Bed Transfer Ability Minimum Assistance X 1 Ability to Transfer To/From the Bed Moderate Assistance X 1 Bed Transfer Technique Stand Step Pivot Cues Needed for Bed Transfer Tactile,Verbal Bed Transfer Comments sitting at edge of mat table - x 5 min - good balance and control - able to correct -
--- NOTE | 2020-07-30 08:17 | PCPTNOTE ---
Patient called & cancelled scheduled appointment this date and next two due to , caregiver not feeling well thinking she has COVID.
--- NOTE | 2020-08-07 09:51 | PCOTNOTE ---
Patient called & cancelled scheduled appointment (OT re-eval) this date due to having a in the family.
--- NOTE | 2020-08-08 14:41 | PCPTNOTE ---
Patient called & cancelled scheduled appointment this date due to mother in law is ill. 's statement - Her mother is in the hospital dying. Also clarified - had strep throat not COVID.
--- NOTE | 2020-08-14 11:54 | PCPTNOTE ---
Patient did not show up for scheduled appointment this date; Called and Lauren, patient's , answered the phone stating they were unable to make today's appointment. Stated her mother just and was arranging and will be calling to reschedule appointments.
--- NOTE | 2020-08-29 13:31 | PCPTNOTE ---
Patient's called & cancelled scheduled appointment this date due to inability to bring him today.
--- NOTE | 2020-08-29 13:32 | PCPTNOTE ---
PHYSICAL THERAPY DISCHARGE NOTE Admitting Provider: Attending Provider: Pallavi Gómez NP Patient:Ted Richardson Date of :1965 Ted has not returned for any further treatments since 07/25/2020, therefore he will be discharged at this time. Patient?s initial visit was on 06/14/2020 14:30 and he had a total of 10 visits. He was not seen for the month of July. Today's appointment was a re-evaluation - which was also cancelled. His status is of 07/26/2020 re evaluation note. The goals have been partially met. Thank you for referring Ted to [facility]. Please review, sign, date and return this discharge summary ANDER. I have been updated about Ted's current status and I agree with discharge from the above service at this time. Referring Physician Date
--- NOTE | 2020-08-29 13:59 | OTOPEVAL ---
OCCUPATIONAL THERAPY DISCHARGE NOTE 08/29/2020 Ted has not returned for any further treatments since 08/05/2020, therefore he will be discharged at this time. Patient?s initial visit was on 07/09/2020 and he had a total of 2 treatment visits. He has not been seen for treatment since 08/05/2020. Today's appointment was a re-evaluation, which was cancelled. Ted will be discharged from further skilled OT at this time with HEP. The goals have been partially met. Thank you for referring Ted to [facility]. Please review, sign, date and return this discharge summary ANDER. Referring Physician Date Attending Provider: Pallavi Gómez LEATHER STAMPER
== END 2020-08-30 08:41 | disposition home or self-care (01) ==
LOC: ANHOT 12:30
PROVIDERS: PCP Internal Medicine; Visit Provider Nurse Practitioner
DX: I69.354 Hemiplegia and hemiparesis following cerebral infarction affecting left non-dominant side (principal)
CPT/HCPCS: 81050; 82088; 82530; 83835; 84300; 97110; 97112; 97140; 97162; 97165

== ENCOUNTER 2020-08-30 14:10 | Emergency (ER) | payer OTHER, SELFPAY ==
[2020-08-30 14:19] VITALS: BP 132/94; PULSE 75; RESP 18; TEMP 36.1; O2SAT 97
[2020-08-30 15:45] VITALS: BP 140/99; PULSE 83; RESP 18; TEMP 36.9; O2SAT 100
--- NOTE | 2020-08-30 15:55 | ED.MALEGU ---
HPI - Male Genitourinary General Chief complaint: Urogenital-Male Stated complaint: Blocked catheter Time Seen by Provider: 08/30/20 15:06 Source: patient and EMS Limitations: no limitations History of Present Illness HPI Narrative: Patient came to the emergency room with clogged Storm catheter noticed after waking up at 11:00 this morning. No urine going through. Patient denying other symptoms. Patient is 55 years old white male history of COPD and hypertension, suffered stroke in November 2019 with left upper and left lower extremity weakness and short-term memory loss. Is currently wheelchair bound. Patient does not know when the last time his Storm catheter was changed. Later patient's arrived in the ED and told us that the home visiting nurse was trying to replace the catheter today and after 2 unsuccessful attempts decided to send patient to the emergency room. Patient finished a course of Cipro few days ago for urinary tract infection Related Data Home Medications Medication Instructions Recorded Confirmed ergocalciferol (vitamin D2) 1,250 1,250 mcg PO WEEKLY 06/24/20 08/19/20 mcg (50,000 unit) capsule gabapentin 100 mg capsule 600 mg PO TID cap 08/19/20 08/19/20 carvedilol 08/30/20 Allergies Allergy/AdvReac Type Severity Reaction Status Date / Time codeine Allergy Mild Rash Verified 08/30/20 17:26 Review of Systems Review of Systems: ROS unobtainable: Yes unobtainable due to mental status PMFSH Past Medical History Medical History Benign prostatic hyperplasia Chronic kidney disease Storm catheter status Gastroesophageal reflux disease Hyperlipidemia Hypertension 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 Urinary retention With indwelling Storm catheter. Surgical History Surgical History History of kidney donation History of tracheostomy Family History Family History Father Alcoholism Mother Carcinoma of colon Social History Social History Social History: Surrogate decision maker: Coreen Richardson, . Code status: Full code. Smoking status: Never smoker Alcohol intake: never Substance use: never Additional living arrangements comments: Patient lives with his in [place]. 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 Gender identity (if verbalized by the patient): Male Spiritual care concerns: No Exam Narrative: Exam Narrative: General appearance: Well-developed, well-nourished Skin: Normal color Head: Normocephalic, nontraumatic Eyes: Clear conjunctiva ENT: Oropharynx normal, ears normal, nose normal Neck: Supple, nontender Chest and respiratory: Airway patent, no respiratory distress, no accessory muscle use Heart: Regular rate/rhythm Abdomen: Soft, nontender, no organomegaly, quiet bowel sounds, Storm catheter in place, wearing depends Weakness left upper and left lower extremity Neurologic: Alert and oriented ?3, FOIL SPINNER is normal as tested, no gross motor deficit Course Course Emergency Course: Three-way catheter was placed, irrigation,-year-old male earlier was bloody urine with little clots, now no clear, urinary analysis hematuria. Patient will be discharged to follow-up with his urologist LEGAL CONSULTANT/PA Physician Supervision Feeling much better, and ready to go home Reevaluation(s) Date: 08/30/20 Time: 18:32 Vital Signs Vital signs: Vital Signs Te
[2020-08-30] MEDS: LIDOCAINE HCL 2% GEL UROJET 10 ML PKG (16:00)
[2020-08-30 17:01] VITALS: BP 132/94; PULSE 82; RESP 18; TEMP 36.6; O2SAT 98
[2020-08-30 18:04] LABS: Add Urine Microscopic? YES; Appearance Urine Cloudy (Clear); Bilirubin Urine Negative (Negative); Blood Urine 3+ (Negative); Color Urine Red (Yellow); Glucose Urine UA Negative (Negative); Ketones Urine Negative (Negative); Leukocyte Esterase Ur Trace LEU/UL (Negative); Nitrate Urine Negative (Negative); Protein Urine 1+ mg/dL (Negative); RBC Urine >75 /hpf (0-2); Specific Grav Ur 1.009 (1.001-1.035); Urobilinogen Urine Negative mg/dL (<2.0); WBC Urine 21-30 /hpf
[2020-08-30 18:31] VITALS: BP 145/99; PULSE 80; RESP 18; TEMP 36.9; O2SAT 98
[2020-08-30 19:00] VITALS: BP 139/88; PULSE 74; RESP 16; TEMP 36.7; O2SAT 98
--- NOTE | 2020-08-30 19:29 | PC.NURSE ---
Patient's 3 way catheter was replaced with 16 f nunes catheter as charted. Patient and his were educated on proper cleaning and care for the nunes while at home. They both verbalized understanding of all education. states that she is familiar with care required because patient has had indwelling catheters at home for the last few months. Nunes was patent and draining at time of discharge.
== END 2020-08-30 19:35 | disposition home or self-care (01) ==
PROVIDERS: Emergency Provider Emergency Medicine; PCP Internal Medicine
DX: T83.098A Other mechanical complication of other urinary catheter, initial encounter (principal); R31.9 Hematuria, unspecified; N40.0 Benign prostatic hyperplasia without lower urinary tract symptoms; I12.9 Hypertensive chronic kidney disease with stage 1 through stage 4 chronic kidney disease, or unspecified chronic kidney disease; E11.22 Type 2 diabetes mellitus with diabetic chronic kidney disease; N18.9 Chronic kidney disease, unspecified; K21.9 Gastro-esophageal reflux disease without esophagitis; E78.5 Hyperlipidemia, unspecified
CPT/HCPCS: 51700; 81001; 87077; 87086; 87088; 87186; 99283

== ENCOUNTER 2020-12-09 13:58 | Outpatient (CLI) | payer OTHER, SELFPAY ==
[2020-12-09 14:34] LABS: Total Protein Urine Random 77 mg/dL
[2020-12-09 14:39] LABS: Albumin Level 3.5 g/dL (3.5-5.1); Anion Gap 1 mmol/L (8-16); Blood Urea Nitrogen 19 mg/dL (9-20); Calcium 8.9 mg/dL (8.4-10.2); Carbon Dioxide 34 mmol/L (22-30); Chloride 101 mmol/L (98-107); Estimated Glomerular Filt Rate 31; Glucose 83 mg/dL (75-110); Phosphorus 4.8 mg/dL (2.5-4.5); Potassium 5.2 mmol/L (3.4-5.0); Sodium 136 mmol/L (137-145)
== END 2020-12-09 13:59 | disposition home or self-care (01) ==
PROVIDERS: PCP Internal Medicine; Visit Provider Internal Medicine Nephrology
DX: N18.30 Chronic kidney disease, stage 3 unspecified (principal)
CPT/HCPCS: 36415; 80069; 81050; 84156

== ENCOUNTER 2021-01-01 13:28 | Outpatient (CLI) | payer OTHER, SELFPAY ==
--- NOTE | ~2021-01-01 | US_ITS ---
EXAMINATION: US retroperitoneal comp DATE: 01/01/2021 14:04 INDICATION: Acute renal failure. Status post right nephrectomy for kidney donation. TECHNIQUE: Multiple ultrasound grayscale images of the kidneys were obtained. COMPARISON: None. FINDINGS: The right kidney is not visualized and reportedly surgically absent. The left kidney measures 12.4 x 4.6 x 5.5 cm. Right kidney demonstrates normal echogenicity and contour with no hydronephrosis. 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 No stones ident ified. The bladder is decompressed around a suprapubic Storm catheter which limits evaluation. IMPRESSION: 1. Likely dislocated left renal collecting system. Otherwise normal left kidney with no hydronephros is. 2. Status post right nephrectomy. Reviewed, dictated and finalized at location B. IMPRESSION: 1. Likely dislocated left renal collecting system. Otherwise normal left kidne y with no hydronephrosis. 2. Status post right nephrectomy.
[2021-01-01 15:40] LABS: Add Urine Microscopic? YES; Appearance Urine Cloudy (Clear); Bacteria Urine 4+ /hpf; Bilirubin Urine Negative (Negative); Blood Urine Negative (Negative); Color Urine Yellow (Yellow); Glucose Urine UA Negative (Negative); Ketones Urine Negative (Negative); Leukocyte Esterase Ur 3+ LEU/UL (Negative); Nitrate Urine Negative (Negative); Protein Urine 1+ mg/dL (Negative); Specific Grav Ur 1.013 (1.001-1.035); Urobilinogen Urine Negative mg/dL (<2.0); WBC Clumps Urine Present /HPF; WBC Urine >75 /hpf
[2021-01-01 15:44] LABS: Anion Gap 6 mmol/L (8-16); Blood Urea Nitrogen 22 mg/dL (9-20); Calcium 9.3 mg/dL (8.4-10.2); Carbon Dioxide 29 mmol/L (22-30); Chloride 103 mmol/L (98-107); Estimated Glomerular Filt Rate 28; Glucose 102 mg/dL (75-110); Phosphorus 4.1 mg/dL (2.5-4.5); Potassium 5.1 mmol/L (3.4-5.0); Sodium 138 mmol/L (137-145)
[2021-01-01 16:28] LABS: Eosinophil Urine None Seen % (None Seen)
[2021-01-01 17:15] LABS: Creatinine Urine 86.3 mg/dL
[2021-01-01 17:24] LABS: Sodium Urine Random 93 meq/L
== END 2021-01-01 13:29 | disposition home or self-care (01) ==
PROVIDERS: PCP Internal Medicine; Visit Provider Internal Medicine Nephrology
DX: N17.9 Acute kidney failure, unspecified (principal); N39.0 Urinary tract infection, site not specified
CPT/HCPCS: 36415; 76770; 80069; 81001; 82570; 84300; 85999; 87077; 87086; 87088; 87186

== ENCOUNTER 2021-10-10 15:20 | Emergency (ER) | payer OTHER, SELFPAY ==
--- NOTE | ~2021-10-10 | XR_ITS ---
EXAMINATION: XR chest 1V portable DATE: 10/10/2021 16:41 INDICATION: Chest pain. Fever. TECHNIQUE: A single frontal view of the chest was obtained. COMPARISON: Chest single view 12/13/2019 FINDINGS: The chest demonstrates clear lungs without pneumonia, pleural effusion, or pneumothorax. Th e heart size is normal. IMPRESSION: 1. No acute cardiopulmonary disease. Reviewed, dictated and finalized at location B. FITTER
[2021-10-10 15:23] VITALS: BP 103/77; PULSE 76; RESP 13; TEMP 37.9; O2SAT 98
[2021-10-10 15:50] VITALS: BP 101/72; PULSE 79; RESP 13; O2SAT 94
--- NOTE | 2021-10-10 15:54 | PC.NURSE ---
spoke w/ pt reports pt. catheter changed approx 08/2021, reports pt takes bp medications. states pt has a wet cough. reports pt was on the brink of having a heart attack.
--- NOTE | 2021-10-10 16:35 | ECG_ITS ---
Measurements Intervals [place] Rate: 72 P: 47 TN: 188 QRS: -34 QRSD: 101 T: 30 QT: 378 QTc: 414 Interpretive Statements SINUS RHYTHM LEFT AXIS DEVIATION LOW QRS VOLTAGE IN LIMB LEADS INFERIOR INFARCT, AGE INDETERMINATE BASELINE ARTIFACT- I, II, III, AVR, AVL, AVF, V1, V4 ABNORMAL ECG Electronically Signed On 10-10-2021 16:44:06 [employer] by Thad Adler D.O.
--- NOTE | 2021-10-10 16:54 | ED.FEVER ---
HPI - Fever General Chief Complaint: Fever Stated Complaint: bodyache, fever Time Seen by Provider: 10/10/21 16:28 Source: patient and RN notes reviewed Limitations: no limitations History of Present Illness HPI Narrative: 56-year-old male present to the emergency department for evaluation of fever. Patient does have a history of CVA and does have left-sided deficit. Patient is not vaccinated to COVID. Patient denies any COVID exposure. Patient denies any symptoms. Patient denies any chest pain or shortness of breath. Patient denies any abdominal pain or associated nausea or vomiting. Related Data Allergies Allergy/AdvReac Type Severity Reaction Status Date / Time codeine Allergy Mild Rash Verified 10/10/21 18:40 Review of Systems Review of Systems: CONSTITUTIONAL: Patient does report fever. EYES: Denies visual changes, redness, or discharge. ENT: Denies rhinorrhea, congestion, sore throat, or otalgia. CARDIOVASCULAR: Denies chest pain, palpitations, or edema. RESPIRATORY: Denies cough or dyspnea. GASTROINTESTINAL: Denies abdominal pain, nausea, vomiting, or diarrhea. GENITOURINARY: Denies dysuria or hematuria. SKIN: Denies rash or itching. MUSCULOSKELETAL: Denies back pain, joint pain, or myalgia. NEUROLOGIC: Left-sided weakness from prior CVA with no change in baseline. 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 Urinary retention With indwelling Storm catheter. Surgical History Surgical History History of kidney donation History of tracheostomy Family History Family History Father Alcoholism Mother Carcinoma of colon Social History Social History Social History: Surrogate decision maker: Coreen Richardson, . Code status: Full code. Smoking status: Never smoker Alcohol intake: never Substance use: never Additional living arrangements comments: Patient lives with his in [place]. 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 Gender identity (if verbalized by the patient): Male Spiritual care concerns: No Exam Narrative: APPEARANCE: Well appearing, no pain, no distress, well-nourished. HEAD: normocephalic, atraumatic. EYES: PERRLA/EOMI, conjunctivae clear. NOSE: Normal no drainage NECK: Supple. No adenopathy, no masses. RESPIRATORY: Airway patent, respirations nonlabored. Clear to auscultation bilaterally, no rales, rhonchi, wheezing. CARDIOVASCULAR: Regular rate and rhythm without murmurs rubs or gallops. ABDOMINAL: Soft, nontender, nondistended, normal bowel sounds. Suprapubic catheter in place with no abnormalities or evidence of infection MUSCULOSKELETAL: Moves all extremities. Strength/ROM intact, No edema, No calf tenderness. NEURO: Alert and oriented and at his normal baseline SKIN: Warm, dry. Normal Color PSYCHIATRIC: Normal affect/mood. Course HYDRAULIC TECHNICIAN/PA Physician Supervision Patient's UA was indicative of a urinary tract infection. Patient was treated with 1 g of Rocephin in the emergency department. Patient will be discharged home on Keflex. Patient's suprapubic Storm catheter was changed in the emergency department without complication. Patient does have mild MICHELLE compared to his baseline creatinine of 2.4. Patient was treated with 1 L of normal saline. Patient continues to deny any complaints at this time and states he feels comfortable with the plan with discharge to home. All questions and concerns were addressed. Patient was clinically stable at [place]
[2021-10-10] MEDS: SODIUM CHLORIDE 0.9% IV 1,000 ML 999 ML IV CONT (17:02)
[2021-10-10] MEDS: ACETAMINOPHEN 325 MG TABLET 650 MG PO (17:02)
[2021-10-10 17:05] LABS: Basophils Absolute Auto 0.1 K/mm3 (0.0-0.1); Basophils Percent Auto 0.5 % (0.2-1.2); Eosinophils Absolute Auto 0.1 K/mm3 (0-0.3); Eosinophils Percent Auto 0.5 % (0-4.4); Hematocrit 45.3 % (42.0-52.0); Hemoglobin 14.7 g/dL (14.0-18.0); Immature Granulocyte Absolute 0.13 K/mm3 (0.00-0.031); Lymphocytes Percent Auto 8.6 % (18.3-44.2); Mean Corpuscular HGB Conc 32.5 g/dl (32-36); Mean Corpuscular Hemoglobin 32.2 pg (26-34); Mean Corpuscular Volume 99.1 fl (80-100); Mean Platelet Volume 9.5 fl (7.4-10.4); Monocytes Absolute Auto 1.3 K/mm3 (0.1-0.6); Monocytes Percent Auto 10.2 % (2.6-8.5); Neutrophils Absolute Auto 10.1 K/mm3 (1.3-6.7); Neutrophils Percent Auto 79.2 % (45.5-73.1); Platelet Count Result 286 k/mm3 (150-375); Red Blood Count 4.57 M/mm3 (4.6-6.20); Red Cell Distribution Width 13.4 % (11.5-14.5); White Blood Count 12.7 K/mm3 (4.5-10.0)
[2021-10-10 17:16] VITALS: BP 100/77; RESP 13; TEMP 37.5; O2SAT 96
[2021-10-10 17:17] LABS: Alanine Aminotransferase 17 U/L (4-50); Albumin Level 4.1 g/dL (3.5-5.1); Alkaline Phosphatase 104 U/L (38-126); Anion Gap 7 mmol/L (8-16); Aspartate Amino Transferase 23 U/L (17-59); Bilirubin,Total 0.5 mg/dL (0.2-1.3); Blood Urea Nitrogen 21 mg/dL (9-20); Calcium 9.2 mg/dL (8.4-10.2); Carbon Dioxide 29 mmol/L (22-30); Chloride 99 mmol/L (98-107); Estimated Glomerular Filt Rate 26; Glucose 112 mg/dL (65-110); Sodium 135 mmol/L (137-145)
[2021-10-10 17:18] LABS: Lactic Acid Reflex 0.9 mmol/L (0.7-2.1)
[2021-10-10 17:21] LABS: Prothrombin Time 13.4 Seconds (11.1-14.7)
[2021-10-10 17:22] LABS: Partial Thromboplastin Time 35.6 SECONDS (22.3-36.8)
[2021-10-10 17:39] LABS: Add Urine Microscopic? YES; Appearance Urine Cloudy (Clear); Bacteria Urine 4+ /hpf; Bilirubin Urine Negative (Negative); Blood Urine 1+ (Negative); Color Urine Amber (Yellow); Glucose Urine UA Negative (Negative); Ketones Urine Negative (Negative); Leukocyte Esterase Ur 3+ LEU/UL (Negative); Mucus Urine Heavy /lpf; Nitrate Urine Negative (Negative); Protein Urine 2+ mg/dL (Negative); Specific Grav Ur 1.019 (1.001-1.035); WBC Urine >75 /hpf
[2021-10-10 18:05] VITALS: BP 105/80; PULSE 70; RESP 12; TEMP 36.9; O2SAT 99
[2021-10-10 19:05] VITALS: BP 102/74; PULSE 88; RESP 19; O2SAT 97
[2021-10-11 23:19] LABS: SARS-CoV-2 RNA PCR Positive
== END 2021-10-10 19:05 | disposition home or self-care (01) ==
PROVIDERS: Emergency Medicine; Emergency Provider Emergency Medicine; PCP Internal Medicine
DX: U07.1 COVID-19 (principal); N39.0 Urinary tract infection, site not specified; R50.9 Fever, unspecified; I12.9 Hypertensive chronic kidney disease with stage 1 through stage 4 chronic kidney disease, or unspecified chronic kidney disease; E11.22 Type 2 diabetes mellitus with diabetic chronic kidney disease; N18.9 Chronic kidney disease, unspecified; E78.5 Hyperlipidemia, unspecified; I69.954 Hemiplegia and hemiparesis following unspecified cerebrovascular disease affecting left non-dominant side; K21.9 Gastro-esophageal reflux disease without esophagitis; N40.0 Benign prostatic hyperplasia without lower urinary tract symptoms
CPT/HCPCS: 36415; 51702; 71045; 80053; 81001; 83605; 85025; 85610; 85730; 87040; 87077; 87086; 87088; 87186; 87804; 93005; 96361; 96365; 99284; A9270; C9803; J0696; J7030; U0003; U0005

== ENCOUNTER 2022-02-12 14:02 | Outpatient (CLI) | payer OTHER, SELFPAY ==
--- NOTE | ~2022-02-12 | XR_ITS ---
EXAMINATION: XR hip LT 2V w AP pelvis DATE: 02/12/2022 14:39 INDICATION: Left hip pain. TECHNIQUE: An anteroposterior view of the pelvis and 2 views of left hip were obtained. COMPARISON: None. FINDINGS: Bone alignment is normal. No fracture. There is mild lumbar spondylosis. There is mild oste oarthritis of the hips. IMPRESSION: 1. Mild osteoarthritis of the hips. Reviewed, dictated and finalized at location A.
--- NOTE | ~2022-02-12 | US_ITS ---
US renal BI 02/12/2022 15:18 Procedure: Realtime transabdominal ultrasound of the kidneys and bladder. Indication: Decreased urinary output Comparison: Ultrasound dated 01/02/2020 Findings: Right kidney is surgically absent. Left renal length is 11.2 cm. No hydronephrosis, mass or stone. There is a suprapubic catheter. Impression: 1: Unremarkable renal ultrasound. No stones, masses or hydronephrosis. 2: Status post right nephrectomy. Reviewed, dictated and finalized at location B. Impression: 1: Unremarkable renal ultrasound. No stones, masses or hydronephrosis. 2: Status post right nephrectomy.
[2022-02-12 16:09] LABS: Prostate Specific Antigen 0.1 ng/mL (< OR = 4.0)
== END 2022-02-12 14:03 | disposition home or self-care (01) ==
PROVIDERS: PCP Internal Medicine; Visit Provider Nurse Practitioner Family
DX: Z12.5 Encounter for screening for malignant neoplasm of prostate (principal); M47.816 Spondylosis without myelopathy or radiculopathy, lumbar region; R34 Anuria and oliguria; M24.552 Contracture, left hip; Z90.5 Acquired absence of kidney; M16.0 Bilateral primary osteoarthritis of hip
CPT/HCPCS: 36415; 73502; 76775; 84153; G0103

== ENCOUNTER 2022-03-17 15:00 | Outpatient (RCR) | payer OTHER, SELFPAY ==
--- NOTE | 2022-03-02 16:08 | PTOPEVAL ---
PHYSICAL THERAPY INITIAL EVALUATION. Thank you for referring Ted Richardson to [facility].? The patient is scheduled to be seen for therapy? 1x/week for 4 weeks. Please review, sign, date and return this plan of care ANDER. I agree with and certify that the following plan of care is medically necessary. Referring Physician Date Attending Provider: Ted Kellogg DO *PT Outpatient Evaluation Start: 03/02/22 Outpatient Past Medical History Hx Cerebrovascular Accident (CVA) Yes: Hemorrhagic stroke 2019 Evaluation Information Diagnosis CVA Onset 11/2019 Subjective Information Pt had a significant stroke on Query Text:As Reported By Patient/ 11/2019. He is currently Family wheelchair bound with a ridig LUE and LLE. His family states he has participated in therapy before but does not let them do it. He is completely dependent with all ADLs and mobility. He has not stood up since his stroke. He and his family states their goals is for him to start walking again. Prior Level of Function Activity of Daily Living Ability Dependent Indoor/Home Mobility Dependent Community Mobility Dependent Stairs Ability Dependent Functional Cognition (Planning, Shopping Dependent , Taking Medications) Cooking No Cleaning No Laundry No Shopping No Driving No Home Setting Caregiver Responsibilities Comment Propelled by family member Mobility Assistive Devices (Used Last 3 Wheelchair, Manual Months) Pain Assessment Self Report Pain Assessment Left Hip(s) Reported Pain Level 5 Pain Description Aching Lowest Pain Intensity 5 Greatest Pain Intensity 5 Lower Extremity Range of Motion General Lower Extremity Range of Motion WFL/Right Gross Lower Extremity Range of Motion L knee extension -50 deg Comments L knee flexion 90 deg L hip flexion 100 deg L hip extension - unable to measure this date Upper Extremity Muscle Strength Testing Gross Upper Extremity Strength Comments LLE grossly 1/5 RLE grossly 3/5 Safety Assessment Factors Affecting Safety Decreased Balance,Decreased Body Awareness,Decreased Endurance,Decreased Mobility,
--- NOTE | 2022-03-24 13:39 | PCPTNOTE ---
Patient's called & cancelled today's & the rest of his scheduled appointment this date due to stating it is a waste of everyone's times, because he won't do anything at home.
--- NOTE | 2022-03-24 15:18 | PCPTNOTE ---
Attending Provider: Ted Kellogg DO Patient:Ted Richardson Date of :1965 PHYSICAL THERAPY DISCHARGE SUMMARY. Patients called today and cancelled all of his remaining appointments, states he is wasting both our time and hers. She states he will not do the exercises or put forth effort when at home. Patient?s initial visit was on 03/02/2022 and he had a total of 2 visits. The goals have been not met. Thank you for referring this patient to [facility]. Please review, sign, date and return this discharge summary ANDER. I have been updated about the patient's current status and I agree with discharge from the above service at this time. Referring Physician Date
== END 2022-03-25 08:35 | disposition home or self-care (01) ==
LOC: ANHPT 15:00
PROVIDERS: PCP Internal Medicine; Referring Provider Internal Medicine; Visit Provider Internal Medicine
DX: M24.552 Contracture, left hip (principal); M25.552 Pain in left hip; M24.512 Contracture, left shoulder; I69.354 Hemiplegia and hemiparesis following cerebral infarction affecting left non-dominant side
CPT/HCPCS: 97110; 97112; 97162; 97530

== ENCOUNTER 2022-06-14 18:52 | Emergency (ER) | payer MEDICARE, MEDICAID, SELFPAY ==
--- NOTE | ~2022-06-14 | XR_ITS ---
EXAM: XR shoulder LT min 2V DATE: 06/14/2022 19:21 HISTORY: pain . COMPARISON: None available. FINDINGS: Decreased mineralization. No fracture or dislocation. No lytic or blastic lesion. Mild deg enerative changes. No erosion or periosteal change. Soft tissues within normal limits. IMPRESSION: No acute osseous finding in the left shoulder. Reviewed, dictated and finalized at location K.
[2022-06-14 18:56] VITALS: BP 116/90; PULSE 79; RESP 16; TEMP 36.6; O2SAT 98
--- NOTE | 2022-06-14 19:24 | ED.GENADULT ---
HPI - General Adult General Chief complaint: Extremity Problem,Nontraumatic Stated complaint: left shoulder pain Time Seen by Provider: 06/14/22 19:01 History of Present Illness HPI narrative: This is a 65-year-old male with left-sided hemiparesis presenting to the ED with left shoulder pain. The patient said the pain started approximately 24 hours ago. There were no preceding events. He describes it as a soreness and shoulder. It is nonradiating. Constant. He has not taken anything for pain control. He has not experienced pain like this before there are no exacerbating or alleviating factors. The patient denies any other symptoms such as fever, chills, nausea vomiting or diarrhea. He denies chest pain difficulty breathing, abdominal pain or GI symptoms. Related Data Home Medications Medication Instructions Recorded Confirmed amlodipine 5 mg tablet 5 mg PO DAILY 01/27/22 01/27/22 Allergies Allergy/AdvReac Type Severity Reaction Status Date / Time codeine Allergy Mild Rash Verified 10/10/21 18:40 Review of Systems Review of Systems: CONSTITUTIONAL: Denies night sweats. EYES: No eye pain ENT: Denies rhinorrhea CARDIOVASCULAR: Denies palpitations RESPIRATORY: Denies hemoptysis GASTROINTESTINAL: Denies hematemesis GENITOURINARY: Denies hematuria. SKIN: Denies rash MUSCULOSKELETAL: Denies myalgia. NEUROLOGIC: Denies weakness. 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 Urinary retention With indwelling Storm catheter. Surgical History Surgical History History of kidney donation History of tracheostomy Family History Family History Father Alcoholism Mother Carcinoma of colon Social History Social History Social History: Surrogate decision maker: Coreen Richardson, . Code status: Full code. Smoking status: Never smoker Alcohol intake: never Substance use: never Additional living arrangements comments: Patient lives with his in [place]. 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 Gender identity (if verbalized by the patient): Male Spiritual care concerns: No Exam Narrative: APPEARANCE: Patient appears older than his stated age. Head atraumatic. EYES: PERRLA/EOMI, NOSE: Normal no drainage NECK: Supple, Trachea midline RESPIRATORY: CTAB, No increased work of breathing. CARDIOVASCULAR: S1S2 appreciated ABDOMINAL: Soft, nontender, nondistended, MUSCULOSKELETAl: Focal exam revealed patient holding his arm close to his body with his elbow in flexion. He has complete flaccid paralysis of the arm Passive range of motion is possible to approximately 90? of abduction before the patient is contracted. Pulses are +2 radial and ulnar distribution. Cap refills less than 2 seconds. There is no redness or erythema or warmth of the shoulder. NEURO: Alert. Moving 4/4 extremities SKIN:: Warm, dry. Normal color PSYCHIATRIC: Normal affect Course Vital Signs Vital signs: Vital Signs Temperature 97.8 F 06/14/22 18:56 Pulse Rate 79 06/14/22 18:56 Respiratory Rate 16 06/14/22 18:56 Blood Pressure 116/90 06/14/22 18:56 Pulse Oximetry 98 06/14/22 18:56 Temperature 97.8 F 06/14/22 18:56 Pulse Rate 79 06/14/22 18:56 Respiratory Rate 16 06/14/22 18:56 Blood Pressure 116/90 06/14/22 18:56 Pulse Oximetry 98 06/14/22 18:56 Medical Decision Making [facility] Narrative Medical decision making narrative: This is
== END 2022-06-14 20:25 | disposition home or self-care (01) ==
LOC: ANHED 19:29
PROVIDERS: Emergency Provider Emergency Medicine; PCP Internal Medicine
DX: M25.512 Pain in left shoulder (principal); E11.22 Type 2 diabetes mellitus with diabetic chronic kidney disease; I12.9 Hypertensive chronic kidney disease with stage 1 through stage 4 chronic kidney disease, or unspecified chronic kidney disease; N18.9 Chronic kidney disease, unspecified; I69.954 Hemiplegia and hemiparesis following unspecified cerebrovascular disease affecting left non-dominant side; E78.5 Hyperlipidemia, unspecified; N40.0 Benign prostatic hyperplasia without lower urinary tract symptoms; K21.9 Gastro-esophageal reflux disease without esophagitis; Z90.5 Acquired absence of kidney
CPT/HCPCS: 73030; 99283

== ENCOUNTER 2023-02-11 15:00 | Outpatient (CLI) | payer MEDICARE, MEDICAID, SELFPAY ==
--- NOTE | ~2023-02-11 | US_ITS ---
US scrotum doppler INDICATION: Testicular pain TECHNIQUE: Testicular sonogram utilizing grayscale and color Doppler FINDINGS: The testes are normal in size and appearance. No focal lesions are seen. The right testes measures 4 x 2.6 x 2.1 cm centimeters, and the left testis measures 4.8 x 2.4 x 2.1 cm cm. There is n ormal vascular flow to both testes. There is a 7 mm right epididymal cysts. There is no varicocele or hydrocele. IMPRESSION: 1. Small right epididymal cyst. Reviewed, dictated and finalized at location L.
== END 2023-02-11 15:01 | disposition home or self-care (01) ==
PROVIDERS: PCP Internal Medicine; Visit Provider Internal Medicine
DX: N50.3 Cyst of epididymis (principal)
CPT/HCPCS: 76870; 93976